=== PATIENT | female | born 1970 | race Caucasian/White ===

== ENCOUNTER 2025-09-30 12:20 | Emergency (ER) | payer SELFPAY ==
[~2025-09-30] VITALS: Ht 160 cm; Wt 58.0 kg
[2025-09-30 12:31] VITALS: O2SAT 98
[2025-09-30] MEDS: ONDANSETRON HCL 4MG/2ML INJ IV ONE (13:27)
[2025-09-30] MEDS: SODIUM CHLORIDE 0.9% 1,000 ML IV ONE (13:27)
[2025-09-30 13:32] LABS: BASOPHILS % 0.9 % (0.0-2.0); EOSINOPHILS % 5.7 % (0.0-5.0); HEMATOCRIT. 24.3 % (36.0-48.0); HEMOGLOBIN. 8.5 g/dL (12.0-16.0); LYMPHOCYTES % 44.8 % (20.0-50.0); MEAN PLATELET VOLUME 7.8 fl (7.4-10.4); MONOCYTES % 6.3 % (2.0-8.0); NEUTROPHILS % 42.3 % (40.0-76.0); PLATELET 226 x1000/uL (130-400); RED BLOOD CELL COUNT 2.64 mill/uL (4.2-5.4); RED CELL DISTRIBUTION WIDTH 14.3 % (11.6-14.6)
[2025-09-30 13:48] LABS: CREATININE 1.0 mg/dL (0.6-1.0)
[2025-09-30 13:49] LABS: UREA NITROGEN BLOOD 9.0 mg/dL (9-23)
[2025-09-30] MEDS ORDERED: ONDA4TAB50 MT (14:23)
[2025-09-30 14:29] VITALS: BP 97/53; PULSE 62; RESP 22; TEMP 36.8; O2SAT 98
== END 2025-09-30 14:43 | disposition home or self-care (01) ==
LOC: ER 12:20
DX: R11.2 Nausea with vomiting, unspecified (principal); Z88.6 Allergy status to analgesic agent
CPT/HCPCS: 80048; 85025; 86850; 86900; 86901; 36415; 93005; 96374; 99283; J2405; J7030; Z7610